=== PATIENT | female | born 1970 | race Caucasian/White ===

== ENCOUNTER 2018-01-16 17:01 | Emergency (ER) | payer OTHER ==
[2018-01-16] MEDS ORDERED: fentaNYL CITRATE/PF 100 MCG/2 ML INJ. IVP ONE (17:15)
[2018-01-16] MEDS ORDERED: KETOROLAC TROMETHAMINE 60 MG/2 ML VIAL IM ONE (17:18)
[2018-01-16] MEDS ORDERED: ORPHENADRINE CITRATE 60 MG/2 ML ML IM ONE (17:18)
--- NOTE | 2018-01-16 17:31 | ED Physician Documentation ---
Fall - HISTORIAN Historian: patient - HPI Chief Complaint: Fall Onset: today Where: work Context: slipped (on pen lying in floor) Associated Symptoms:: no loss of consciousness Location of Pain/Injury: lower back Injury to Right Extremity: none Injury to Left Extremity: none Further Comments: yes (47 year old female patient presents with lower back pain. Patient slipped on a pen lying in the floor at [facility] and fell flat on her back. Patient complains of 9/10 back pain in lower back. Denies numbness or tingling at present; no loss of bowel or bladder. Pain worse with ambulation.) - ROS CONST: no problems NEURO: denies: dizziness, anxiety, depression, other MS/SKIN/LYMPH: denies: weakness, numbness, neck pain, back pain, ankle swelling, leg swelling, rash, other EYES/ENT: none CVS/RESP: none GI/: denies: problems urinating, nausea, vomiting, other - PAST HX Past History: cardiac disease (2016 - CABG), other (HTN, depression) Allergies/Adverse Reactions: Allergies Allergy/AdvReac Type Severity Reaction Status Date / Time gabapentin [From Neurontin] Allergy Verified 01/16/18 17:42 Home Medications: Ambulatory Orders Medication Instructions Recorded Aspirin [Lizzie] 81 mg PO DAILY 01/21/15 Simvastatin [Zocor] 40 mg PO HS 01/21/15 Baclofen [Liorasal] 10 mg PO TID PRN #30 tablet 01/16/18 Ketorolac Tromethamine [Toradol] 10 mg PO TID #15 tablet 01/16/18 - SOCIAL HX Smoking History: non-smoker - FAMILY HX Family History: cardiac disease - VITAL SIGNS Vital Signs: Vital Signs Temp Pulse Resp BP Pulse Ox 118/68 01/21/15 06:22 - REVIEWED ASSESSMENTS Nursing Assessment Reviewed: Yes Vitals Reviewed: Yes Progress - Progress Progress: No improvement in pain after toradol and norflex. Dilaudid IM given Patient reports pain has improved signficantly. Reviewed CT findings, will likely need MRI. Reviewed discharge plan. encouraged rest, ice and healing. ED Results Lab/Radiology - Radiology Radiology Impressions: Computed tomography lumbar spine without contrast History: Low back pain after fall Findings: Transverse lumbar spine sections are obtained without contrast A moderate L2 compression deformity is chronic. There is no evidence of acute fracture. At L3-4 there is mild disc space narrowing and mild diffuse disc bulging without stenosis. At L4-5 there is posterior central disc protrusion with spinal canal narrowing and borderline central canal stenosis. The remaining intervertebral discs are normal. Impression: 1. Old L2 compression deformity. 2. L3-4 disc bulging. 3. Posterior central L4-5 disc protrusion with borderline central canal stenosis. 4. No acute fracture. Electronically signed on Jan 16, 2018 6:41:59 PM RN COMPLIANCE by: - Orders Orders: ED Orders Category Date Time Status CT L-SPINE W/O CONTRAST Stat Exams 01/16/18 Ordered Ketorolac Tromethamine [Toradol] Med 01/16/18 17:18 Once 60 mg IM NOW ONE Orphenadrine Citrate [Norflex] Med 01/16/18 17:18 Once 60 mg IM NOW ONE fentaNYL CITRATE/PF [Duragesic] Med 01/16/18 17:15 Discontinued 50 mcg IVP NOW ONE Fall Physical Exam - Physical Exam General Appearance: moderate distress Head: non-tender, no swelling, no obvious injury Neck: non-tender, painless ROM, trachea midline Eye: JOAN, EOMI, lids & conjunct. nml Resp/CVS: chest non-tender, no ecchymosis, breath sounds nml, no resp. distress, heart sounds nml Abdomen: soft, no organomegaly, normal bowel sounds, no abdominal bruit, no distension Neuro: oriented x3, CN's nml as tested, sensation nml, motor nml, mood/affect nml, senior security engineer nml, reflexes nml, senior security engineer symmetrical Back: normal inspection, vertebral tenderness (L4-5). No: muscle spasm Extremities: atraumatic, pelvis stable, hips non-tender, no pedal edema, nml ROM, nml color/temp Joint: joints nml, nml ROM - Arik Coma Score Eyes Open: Spontaneous Speech: Oriented Motor: Obeys Commands Discharge Clincal Impression: Bulging discs Fall Qualifiers: Encounter type: initial encounter Qualified Code(s): W19.XXXA - Unspecified fall, initial encounter Acute low back pain Qualifiers: Back pain laterality: bilateral Sciatica presence: without sciatica Qualified Code(s): M54.5 - Low back pain Prescriptions: Baclofen [Liorasal] 10 mg PO TID PRN #30 tablet PRN Reason: Spasms Ketorolac Tromethamine [Toradol] 10 mg PO TID #15 tablet Referrals: Tonio Clark DO [Primary Care Provider] - 2 Days Additional Instructions: Ice Rest Elevation You may use Tylenol every 4hour as needed for pain. Limit your dose to less than 4 G per day. Do not take ibuprofen, aleve, naproxen or any other NSAID while you are on toradol. You may want to try massage, over the counter lidocaine patches, biofreeze, dannielle mercer or aspercream . Call your primary care doctor for an appointment; you will need an MRI of the Lumbar spine. Condition: Stable Disposition: 01 HOME, SELF-CARE Decision to Admit: NO Decision Time: 20:11
--- NOTE | 2018-01-16 18:58 | Diagnostic Imaging Report ---
DENISHA GOETZ (WORKS MANAGER) - ER [facility] [id number] [facility] [address] [place], [place]. 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 There is no evidence of acute fracture. At L3-4 there is mild disc space narrowing and mild diffuse disc bulging without stenosis. At L4-5 there is posterior central disc protrusion with spinal canal narrowing and borderline central canal stenosis. The remaining intervertebral discs are normal. Impression: 1. Old L2 compression deformity. 2. L3-4 disc bulging. 3. Posterior central L4-5 disc protrusion with borderline central canal stenosis. 4. No acute fracture. Electronically signed on Jan 16, 2018 6:41:59 PM STEAMING MACHINE OPERATOR by: Herrera COPPOLA
[2018-01-16] MEDS ORDERED: HYDROmorphone HCL/PF 1 MG/ML VIAL IM ONE (19:30)
[2018-01-16 20:32] VITALS: BP 122/74
== END 2018-01-16 20:29 | disposition home or self-care (01) ==
LOC: ED 17:01
DX: M51.26 Other intervertebral disc displacement, lumbar region (principal); M48.061 Spinal stenosis, lumbar region without neurogenic claudication; W01.0XXA Fall on same level from slipping, tripping and stumbling without subsequent striking against object, initial encounter; Y93.9 Activity, unspecified; Y92.219 Unspecified school as the place of occurrence of the external cause; Y99.0 Civilian activity done for income or pay
CPT/HCPCS: 72131; 96372; 99283; 99284; J1170; J1885; J2360